=== PATIENT | female | born 1980 | race Caucasian/White ===

== ENCOUNTER 2016-12-31 23:56 | Emergency (ER) | payer OTHER ==
[~2016-12-31] VITALS: Ht 172.7 cm; Wt 77.1 kg
[~2016-12-31 23:56] MED LIST: AMBIEN10 M1 PO; ATIVAN0.5 MG PO; AUGMENTIN 875875 MG PO; BACTRIM DS 8001 TA1 PO; BACTROBAN2% T; COMPAZINE10 MG PO; KEFLEX500 MG PO; KLONOPIN1 MG PO; ZITHROMAX Z PA250 MG PO
[2017-01-01 00:41] LABS: URINE AMPHETAMINES < 1000 (1000ng/ml); URINE BARBITURATES < 200 (200ng/ml); URINE COCAINE < 300 (300ng/ml)
== END 2017-01-01 00:59 | disposition home or self-care (01) ==
LOC: ED 23:56
PROVIDERS: Nurse Practitioner Family
DX: Z13.89 Encounter for screening for other disorder (principal); F17.200 Nicotine dependence, unspecified, uncomplicated

== ENCOUNTER 2017-01-17 08:22 | Emergency (ER) | payer OTHER ==
[~2017-01-17] VITALS: Ht 170.1 cm; Wt 77.1 kg
[2017-01-17] MEDS ORDERED: PREDNISONE50 MG PO (09:00)
[2017-01-17] MEDS ORDERED: VALTREX1000 MG PO (09:00)
== END 2017-01-17 09:42 | disposition home or self-care (01) ==
LOC: ED 08:22
DX: B02.9 Zoster without complications (principal); L25.9 Unspecified contact dermatitis, unspecified cause; F17.200 Nicotine dependence, unspecified, uncomplicated

== ENCOUNTER 2022-01-04 12:29 | Emergency (ER) | payer BC ==
[~2022-01-04] VITALS: Wt 73.9 kg
[~2022-01-04 12:29] MED LIST changes: +PREDNISONE50 MG PO; +VALTREX1000 MG PO
[2022-01-04 13:13] LABS: BASO # 0.1 10*3/uL (0.0-0.1); EOS # 0.2 10*3/uL (0.0-0.4); EOS % 2.9 % (1.0-4.0); HEMATOCRIT 38.7 % (37.0-47.0); LYMPH # 1.7 10*3/uL (1.3-4.4); LYMPH % 33.4 % (27.0-41.0); MEAN CELL VOLUME 82.3 fl (81.0-99.0); MEAN CORPUSCULAR HGB 28.5 pg (27.0-31.0); MEAN CORPUSCULAR HGB CONC 34.6 g/dl (33.0-37.0); MEAN PLATELET VOLUME 10.3 fl (9.6-12.3); MONO # 0.4 10*3/uL (0.1-1.0); MONO % 7.1 % (3.0-9.0); NEUT # 2.9 10*3/uL (2.3-7.9); NEUT % 55.6 % (47.0-73.0); PLATELET COUNT AUTOMATED 253 10*3/uL (130-400); RED CELL DISTRI WIDTH 12.1 % (0-14.5); WHITE BLOOD COUNT 5.2 10*3/uL (4.8-10.8)
[2022-01-04 13:28] LABS: ALKALINE PHOSPHATASE 108 U/L (45-117); BUN 12 mg/dl (7-24); CHLORIDE 108 mmol/L (98-107); CREATININE 1.18 mg/dL (0.55-1.02); POTASSIUM 3.5 mmol/L (3.5-5.1); SGOT/AST 26 IU/L (3-35); SGPT/ALT 35 U/L (12-78); SODIUM 139 mmol/L (136-145); TOTAL PROTEIN 8.1 gm/dL (6.4-8.2)
[2022-01-04] MEDS ORDERED: VIBRAMYCIN100 MG PO (15:04)
== END 2022-01-04 15:27 | disposition home or self-care (01) ==
LOC: ED 12:29
PROVIDERS: Physician Assistant
DX: L02.415 Cutaneous abscess of right lower limb (principal); Z79.2 Long term (current) use of antibiotics; Z79.899 Other long term (current) drug therapy; Z90.710 Acquired absence of both cervix and uterus

== ENCOUNTER → 2022-01-11 | Outpatient (CLI) | payer BC ==
[~2022-01-11] MED LIST changes: +VIBRAMYCIN100 MG PO
== END | disposition home or self-care (01) ==
LOC: WOUNDCARE 03:18
PROVIDERS: ATTEND Nurse Practitioner Family
DX: L02.415 Cutaneous abscess of right lower limb (principal); Z71.6 Tobacco abuse counseling; Z90.710 Acquired absence of both cervix and uterus

== ENCOUNTER → 2024-11-04 | Outpatient (CLI) | payer BC | END | disposition home or self-care (01) | LOC: MAMMO 08:07 | PROVIDERS: ATTEND Nurse Practitioner Family | DX: Z12.31 Encounter for screening mammogram for malignant neoplasm of breast (principal); R92.313 Mammographic fatty tissue density, bilateral breasts ==